=== PATIENT | female | born 1995 | race African-American/Black ===

== ENCOUNTER 2019-09-26 15:47 | Emergency (ER) | payer OTHER ==
[~2019-09-26] VITALS: Ht 172.7 cm; Wt 93.4 kg
[2019-09-26 17:05] LABS: URINE BILIRUBIN NEGATIVE (Negative); URINE BLOOD NEGATIVE (Negative); URINE CLARITY CLEAR; URINE COLOR YELLOW; URINE GLUCOSE-RANDOM* NEGATIVE (Negative); URINE KETONES NEGATIVE (Negative); URINE LEUKOCYTES-REFLEX NEGATIVE (Negative); URINE NITRITE-REFLEX NEGATIVE (Negative); URINE PROTEIN (DIPSTICK) NEGATIVE (Negative); URINE UROBILINOGEN 0.2 E.U./dl (0.2-1.0)
[2019-09-26] MEDS ORDERED: TESSALON PERLE100 MG PO (19:12)
[2019-09-26] MEDS ORDERED: PREDNISONE 20 M20 MG PO (19:12)
[2019-09-26] MEDS ORDERED: VENTOLIN HFA 1818 GM INH (19:18)
[2019-09-26 19:44] VITALS: BP 132/86
== END 2019-09-26 19:45 | disposition home or self-care (01) ==
LOC: ER 15:47
PROVIDERS: Physician Assistant
DX: J06.9 Acute upper respiratory infection, unspecified (principal); Z88.6 Allergy status to analgesic agent; Z11.3 Encounter for screening for infections with a predominantly sexual mode of transmission